=== PATIENT | male | born 1955 | race Caucasian/White ===

== ENCOUNTER 2022-07-05 14:26 | Inpatient (IN) | payer OTHER ==
[~2022-07-05] VITALS: Ht 172.7 cm; Wt 86.2 kg
[2022-07-05 14:56] LABS: Source, Urine Clean Catch
[2022-07-05 15:00] LABS: BASOPHILS ABSOLUTE AUTO 0.01 K/mm3 (0.00-0.23); BASOPHILS PERCENT AUTO 0 % (0-2); EOSINOPHILS ABSOLUTE AUTO 0.01 K/mm3 (0.00-0.68); EOSINOPHILS PERCENT AUTO 0 % (0-6); Hematocrit 46.7 % (37.0-53.0); Hemoglobin 15.6 g/dL (13.5-17.5); IMMATURE GRAN ABSOLUTE AUTO 0.06 K/mm3 (0.00-0.10); IMMATURE GRAN PERCENT AUTO 1 % (0-1); LYMPHOCYTES ABSOLUTE AUTO 0.74 K/mm3 (0.84-5.20); LYMPHOCYTES PERCENT AUTO 8 % (21-46); MONOCYTES ABSOLUTE AUTO 0.62 K/mm3 (0.16-1.47); MONOCYTES PERCENT AUTO 6 % (4-13); Mean Corpuscular HGB 29.3 pg (26.0-34.0); Mean Corpuscular HGB Conc 33.4 g/dL (31.5-36.5); Mean Corpuscular Volume 88 fL (80-100); Mean Platelet Volume 11.9 fL (9.1-12.4); NEUTROPHILS ABSOLUTE AUTO 8.23 K/mm3 (1.96-9.15); NEUTROPHILS PERCENT AUTO 85 % (41-73); Platelet Count 137 K/mm3 (150-400); RDW Coefficient Variation 14.1 % (11.7-14.2); RDW Standard Deviation 45.5 fL (35.1-46.3); Red Blood Cell Count 5.32 M/mm3 (4.30-5.90); White Blood Cell Count 9.67 K/mm3 (4.00-11.30)
[2022-07-05 15:07] LABS: Blood, Urine 5+ (Neg); Color, Urine Amber (P-Yellow); Glucose Qualitative, Urine Neg (Neg); Ketones, Urine 1+ (Neg); Leukocyte Esterase, Urine 1+ (Neg); Nitrite, Urine Neg (Neg); Protein, Urine 3+ (Neg); Urobilinogen, Urine 1+ (Normal)
[2022-07-05 15:29] LABS: Appearance, Urine Hazy (Clear); Bilirubin, Urine 1+ (Neg)
[2022-07-05 15:39] LABS: U Amphetamine Screen Not Detected; U Barbituate Screen Not Detected; U Benzodiazapine Screen Not Detected; U Buprenorphine Screen Not Detected; U Cannabinoids Screen Not Detected; U Cocaine Screen Not Detected; U Methadone Screen Not Detected; U Methamphetamine Screen Not Detected; U Opiates Screen Not Detected; U Oxycodone Screen Not Detected; U Phencyclidine Screen Not Detected; U Propoxyphene Screen Not Detected
[2022-07-05 15:42] LABS: Calcium Oxalate Crystals Few /hpf
[2022-07-05 15:45] LABS: Amorphous Light (0-Heavy); Bacteria Mod /hpf; Squamous Epithelial Cells Rare /hpf (Few)
[2022-07-05 16:33] LABS: Alanine Aminotransfer (ALT/SGP 170 U/L (12-78); Albumin, Blood 3.1 g/dL (3.4-5.0); Albumin/Globulin Ratio 0.9 (0.8-1.8); Alk Phos 58 U/L (50-136); Anion Gap 16 mmol/L (6-16); Aspartate Aminotrans (AST/SGOT 557 U/L (12-37); Bilirubin, Total 0.6 mg/dL (0.1-1.0); Blood Urea Nitrogen 85 mg/dL (8-24); CO2, Blood 19 mmol/L (21-32); Calcium, Blood 7.8 mg/dL (8.5-10.1); Chloride, Blood 111 mmol/L (98-108); Creatinine, Blood 4.25 mg/dL (0.60-1.20); Globulin, Blood 3.4 g/dL (2.2-4.0); Glomerular Filtration Rate 14 (60-); Glucose, Blood 136 mg/dL (70-99); Sodium, Blood 146 mmol/L (136-145); Total Protein, Blood 6.5 g/dL (6.4-8.2)
[2022-07-05 17:51] LABS: CPK Creatine Kinase >20000 U/L (39-308)
[2022-07-05 18:06] LABS: Creatine Kinase MB 80.7 ng/mL (0.0-3.6); Creatine Kinase MB Index Unable to Calculate (0.0-4.0)
--- NOTE | 2022-07-06 04:34 | NUR ---
AIRCRAFT ENGINE SPECIALIST SUMMARY/NEW ADMIT PT ALERT AND ABLE TO ANSWER BASIC ORIENTATION QUESTIONS BUT PRESENTS FORGETFUL/MILDLY CONFUSED. FULL CODE. ON TELE--NORMAL SINUS 78 BPM. PT FELL AT HOME; FOUND DOWN AFTER THREE DAYS. PT HAS LARGE BRUISE TO LEFT HIP, ABRASION TO LEFT KNEE AND RIGHT TOE. DENIES PAIN. PT WEAK; XFERED TO BED W/SLIDER. UNABLE TO ASSESS GAIT. PT RCV FLUIDS; NS 100 MLS HR. PT INCONT OF URINE; ATTENDS IN PLACE. PT HAS A MOIS UNPRODUCTIVE COUGH; PT REPORTED COUGH WAS NEW BUT ADMIT NOTES STATE PT HAD VIRAL ILLNESS/COUGH PREVIOUSLY. ORIENTED PT TO ROOM AND CALL LIGHT. CALL LIGHT ACCESSIBLE. SET BED ALARM FOR SAFETY DUE TO PT CONFUSION. PT NOT IMPULSIVE BUT HAS NOT USED CALL LIGHT T/O THE SHIFT. PT HAS WAITED FOR STAFF T/ROUND TO MAKE REQUESTS.
[2022-07-06 06:21] LABS: Magnesium, Blood 2.7 mg/dL (1.6-2.4)
[2022-07-06 06:26] LABS: Albumin, Blood 2.7 g/dL (3.4-5.0); Blood Urea Nitrogen 89 mg/dL (8-24); CO2, Blood 20 mmol/L (21-32); Calcium, Blood 7.1 mg/dL (8.5-10.1); Chloride, Blood 105 mmol/L (98-108); Creatinine, Blood 3.71 mg/dL (0.60-1.20); Glomerular Filtration Rate 17 (60-); Glucose, Blood 101 mg/dL (70-99); Phosphorus, Blood 6.3 mg/dL (2.5-4.9); Potassium, Blood 3.6 mmol/L (3.5-5.5)
[2022-07-06 06:28] LABS: Anion Gap 10 mmol/L (6-16); Sodium, Blood 135 mmol/L (136-145)
[2022-07-06 07:07] LABS: Adenovirus Not Detected (NOT DETECT); Bordetella pertussis Not Detected (NOT DETECT); Chlamydophila pneumoniae Not Detected (NOT DETECT); Coronavirus 229E Not Detected (NOT DETECT); Coronavirus HKU1 Not Detected (NOT DETECT); Coronavirus NL63 Not Detected (NOT DETECT); Coronavirus OC43 Not Detected (NOT DETECT); Human Metapneumovirus Not Detected (NOT DETECT); Human Rhinovirus/Enterovirus Not Detected (NOT DETECT); Influenza A/2009-H1 Not Detected (NOT DETECT); Influenza A/H1 Detected (NOT DETECT); Influenza A/H3 Not Detected (NOT DETECT); Influenza B Not Detected (NOT DETECT); Mycoplasma pneumoniae Not Detected (NOT DETECT); Parainfluenza Virus 1 Not Detected (NOT DETECT); Parainfluenza Virus 2 Not Detected (NOT DETECT); Parainfluenza Virus 3 Not Detected (NOT DETECT); Parainfluenza Virus 4 Not Detected (NOT DETECT); Respiratory Syncytial Virus Not Detected (NOT DETECT); SARS-Cov-2 (COVID-19), BioFire Not Detected (NOT DETECT)
--- NOTE | 2022-07-06 17:19 | NUR ---
SHIFT SUMMARY PATIENT DENIES PAIN, NAUSEA, AND SHORTNESS OF BREATH. PATIENT IS A 1P WITH FWW FOR TRANSFERS. PATIENT IS INFLUENZA A POSITIVE AND IN DROPLET ISOLATION. PATIENT WORKED WITH PT TODAY, SEE NOTE. PATIENT REFUSED BREAKFAST AND LUNCH. EDUCATED ON IMPORTANCE OF NUTRITION. SOLAR MANUFACTURER'S REPRESENTATIVE ALSO SPOKE WITH PATIENT. PATIENT BROTHER VISITED TODAY. PATIENT SLEPT THROUGHOUT DAY. PATIENT IS PLEASANT AND COOPERATIVE WITH CARE. PATIENT IS A&O X4. PATIENT IS SLOW TO RESPOND AND NEEDS REDIRECTION AT TIMES.
--- NOTE | 2022-07-07 04:34 | NUR ---
SHIFT SUMMARY 67 YR M ADMITTED ON 07/05/22 FOR [facility]. FULL CODE. PT HAS A WET, GURGLY COUGH DUE TO BEING POSITIVE FOR INFLUENZA A. HE IS DOING WELL WITH HIS COUGHING AND HAS NO C/O PAIN OR DISCOMFORT. HE STATES THAT HE IS STARTING TO FEEL BETTER. HE USES THE BEDSIDE URINAL INDEPENDANTLY BUT WILL ASK THE NURSE TO DO IT FOR HIM IF SHE IS IN THE ROOM WHEN HE NEEDS TO URINATE. HE HAS SLEPT FOR MOST OF THIS SHIFT AND USES THE CALL LIGHT APPROPRIATELY WHEN HE NEEDS ASSISTANCE. HE IS SLOW TO RESPOND VERBALLY BUT IS A&O X 4.
[2022-07-07 06:13] LABS: Hematocrit 36.2 % (37.0-53.0); Hemoglobin 12.6 g/dL (13.5-17.5); Mean Corpuscular HGB 30.1 pg (26.0-34.0); Mean Corpuscular HGB Conc 34.8 g/dL (31.5-36.5); Mean Corpuscular Volume 86 fL (80-100); Mean Platelet Volume 12.5 fL (9.1-12.4); Platelet Count 108 K/mm3 (150-400); RDW Coefficient Variation 14.1 % (11.7-14.2); RDW Standard Deviation 44.3 fL (35.1-46.3); Red Blood Cell Count 4.19 M/mm3 (4.30-5.90); White Blood Cell Count 5.58 K/mm3 (4.00-11.30)
[2022-07-07 06:46] LABS: Albumin, Blood 2.4 g/dL (3.4-5.0); Albumin/Globulin Ratio 0.8 (0.8-1.8); Bilirubin, Total 0.6 mg/dL (0.1-1.0); Bun/Creatinine Ratio 24.4 (12.0-20.0); Calcium, Blood 7.8 mg/dL (8.5-10.1); Creatinine, Blood 3.44 mg/dL (0.60-1.20); Phosphorus, Blood 4.1 mg/dL (2.5-4.9); Potassium, Blood 3.2 mmol/L (3.5-5.5); Total Protein, Blood 5.4 g/dL (6.4-8.2)
[2022-07-07 06:47] LABS: BAND PERCENT MAN 3 % (0-8); BASOPHILS PERCENT MAN 0 % (0-2); EOSINOPHILS PERCENT MAN 0 % (0-6); LYMPHOCYTES ABSOLUTE MAN 0.44 K/mm3 (0.84-5.20); LYMPHOCYTES PERCENT MAN 8 % (21-46); MONOCYTES ABSOLUTE MAN 0.22 K/mm3 (0.16-1.47); MONOCYTES PERCENT MAN 4 % (4-13); NEUTROPHILS ABSOLUTE MAN 4.91 K/mm3 (1.96-9.15); SEG NEUTROPHILS PERCENT MAN 85 % (41-73); TOTAL CELLS COUNTED 100
--- NOTE | 2022-07-07 19:50 | NUR ---
SUMMARY- PT A/O X3-4, FORGETFUL. USES CALL LIGHT. USED URINAL ALL DAY, ONE INCONTINANCE CHANGED FROM NIGHT TO AM, OTHERWISE USED URINAL ALL DAY. HAD BED BATH. UP TO CHAIR WITH PHYSICAL THERAPY. HAS BEEN REFUSING MEALS, NO APPETITE, ENCOURAGING FLUIDS AND SUPP NEPRO DRINKS HE IS TOLERATING. BROTHER IN ROOM VISITING MOST OF THE DAY. PT HAS NS CONT IVF 100ML HR. LUNGS COARSE, FREQ MOIST NONPROD COUGH. STARTED ON FLUTTER AND ROBITUSSIN. NOTED ONE LG SPUTUM COUGHED UP RUST COLORED. REPORTED TO NOC RN.
--- NOTE | 2022-07-08 04:29 | NUR ---
SHIFT SUMMARY PATIENT HAD NO ACUTE CHANGES. AXOX 3-4, FORGETFUL AT TIMES. USES URINAL AT BEDSIDE. ONE ASSIST W/FWW GB TO BSC. PIV REMAINS INTACT. NS INFUSING AT 100 mL/HR. TELE MONITOR NSR @ 76. VSS/AFEBRILE. DENIES PAIN, SOB, AND N/V. CALL LIGHT IN REACH. BED IN LOWEST POSITION. WILL CONTINUE TO MONITOR UNTIL DAY SHIFT NURSE ASSUMES CARE.
[2022-07-08 06:22] LABS: Albumin, Blood 2.2 g/dL (3.4-5.0); Albumin/Globulin Ratio 0.6 (0.8-1.8); Bilirubin, Total 0.6 mg/dL (0.1-1.0); Bun/Creatinine Ratio 28.9 (12.0-20.0); Calcium, Blood 7.8 mg/dL (8.5-10.1); Creatinine, Blood 2.39 mg/dL (0.60-1.20); Globulin, Blood 3.5 g/dL (2.2-4.0); Potassium, Blood 3.4 mmol/L (3.5-5.5); Total Protein, Blood 5.7 g/dL (6.4-8.2)
--- NOTE | 2022-07-08 11:21 | NUR ---
LAMONT SIMS IS AT THE [facility]- PT BROTHER IS ASKING QUESTIONS ABOUT ASSISTED LIVING FACILITIES IN THE AREA AND TRYING TO FIND RESOURCES FOOR THE PT TO HAVE A SAFER LIVING SITUATION. THE PT CURRENTLY LIVES ALONE. THE DC PLAN IS HOME WITH HOME HEALTH. THE P.T. RECOMENDATION IS HOME WITH SUPERVISION AND HOME HEALTH. THE PT WOULD BENIFIT FROM A PLACE WHERE SOMEONE WOULD REMIND HIM WHEN IT IS MEAL TIME AND WHEN TO GO TO THE BATHROOM AND ASSIST HIM WITH SOME PERSONAL CARE NEEDS. CONTACTED CARE MANAGEMENT MICH SHE PROVIDED A BOOK OF RESOURCES TO THE PT BROTHER, SHE WILL MEET WITH THEM [place] TODAY. WILL SPEEK TO DR CLEVELAND ABOUT THE DC PLAN.
--- NOTE | 2022-07-08 16:34 | NUR ---
SHIFT SUMMARY- PT ALERT AND ORIENTED, 1PA TO THE BATHROOM AND INTO THE SHOWER. PT HAD A SSHOWER THIS MORNING. PER REPORT THE PT IS INDEPENDENT WITH THE URINAL HOWEVER THIS IS NOT THE CASE. THE PT WILL USE THE URINAL WHEN PROMPTED. THE PT IS WILLING TO WORK WITH THERAPY, MINI COG WAS COMPLETED TODAY. PT FAMILY IS ATTEMPTING TO ARRANGE FOR ASSISTANCE FOR THE PT AT HOME. PLAN IS TO DC THE PT HOME WITH HOME HEALTH ONCE MEDICALLY STABLE. WILL CTM AND PASS ON TO NIGHT RN IN BEDSIDE REPORT. PT IN BED, CALL LIGHT IN REACH NO S&S OF DISTRESS AT THIS TIME WILL CTM.
--- NOTE | 2022-07-09 04:26 | NUR ---
SHIFT SUMMARY PATIENT HAD NO ACUTE CHANGE. AXOX 4 AND ONE ASSIST FWW TO BSC. USES URINAL AT BEDSIDE. PIV REMAINS INTACT. NS INFUSING AT 100 mL/HR. TELE MONITOR NSR @77. VSS/AFEBRILE. DENIES PAIN, SOB, AND N/V. CALL LIGHT IN REACH. BED IN LOWEST POSITION. WILL CONTINUE TO MONITOR UNTIL DAY SHIFT NURSE ASSUMES CARE.
[2022-07-09 06:28] LABS: Bun/Creatinine Ratio 32.9 (12.0-20.0); Calcium, Blood 8.1 mg/dL (8.5-10.1); Creatinine, Blood 1.58 mg/dL (0.60-1.20); Potassium, Blood 3.3 mmol/L (3.5-5.5)
--- NOTE | 2022-07-09 16:17 | NUR ---
PT PLEASANT TODAY WITH NO C/O PAIN. DID WORK WITH P/T TODAY. IV FLUIDS RUNNING. PT NAPPED THIS AFT. LUNGS CONTINUE TO BE COARSE. NO NEW CONCERNS NOTED TODAY. BED IN LOW POSITION, CALL LITE IN REACH, CALLS APPROP
--- NOTE | 2022-07-10 05:20 | NUR ---
PER DIEM INTERPRETER SUMMARY PT A/OX3; WITH SLOW RESPONSE AND SOME FORGETFULLNESS. PT PULLED LEFT AC IV OUT WITH FLUIDS INFUSING; FOUND BEDDING TO BE SOAKED WITH NS FLUIDS AND SOME BLOOD. PT WAS UNAWARE IV HAD BEEN PULLED AND HAD NOT NOTICED THE DAMP GOWN AND BEDDING. PLACED NEW RT FOREARM IV. PT HAD SMALL SOFT BM. NOTED STAGE ONE PRESSURE SORE ON COCCYX DURING BRIEF CHANGE. EXCORIATED NON BLANCHING SKIN W/SOME OPEN BLEEDING AREAS. APPLIED CREAM AND MEPILEX. PT EDUCATION ON IMPORTANCE OF MOVING/CHANGING POSITIONS. WORKED WITH AID TO START Q2 TURNS T/O THE NIGHT. PT NEEDS PROMPTING TO CHANGE POSITIONS. PT HAS DIFFICULTY SWALLOWING TABLET MUCINEX WITH 2100 MEDS; PT SHOULD BE GIVEN ORAL SUSPENSION. WILL ADVISE ONCOMING STAFF. PT HAS HARSH PERSISTANT COUGH T/O THE NIGHT; NON PRODUCTIVE. LUNG SOUNDS COARSE W/EXPIRATION. ENCOURAGE MOVEMENT AND DEEP BREATHING. PT HAS NOT DEMONSTRATED HE CAN MAKE HIS NEEDS KNOWN. HE DID NOT ALERT STAFF WHEN HE HAD A BOWEL MOVEMENT AND HAS NOT USED LIGHT TO REACH STAFF. CALL LIGHT IS ACCESSIBLE. WILL CONT TO MONITOR.
--- NOTE | 2022-07-10 12:06 | NUR ---
PT BROUGHT DOWN IN FOR DC WITH HIS BROTHER. PT LEFT WITH ALL BELONGINGS AND HAD WALKER FROM HOME FOR TRANSFER INTO CAR. PT SIGNED ALL REQUIRED DC PAPERWORK.
== END 2022-07-10 10:57 | disposition home or self-care (01) | DRG 683 ==
LOC: ER 14:26 → MEDS 17:57
PROVIDERS: Emergency Medicine; Student in an Organized Health Care Education/Training Program; ADMIT Internal Medicine
DX: N17.9 Acute kidney failure, unspecified (principal); E87.1 Hypo-osmolality and hyponatremia; I24.8 Other forms of acute ischemic heart disease; M62.82 Rhabdomyolysis; J10.1 Influenza due to other identified influenza virus with other respiratory manifestations; Z28.21 Immunization not carried out because of patient refusal; Z20.822 Contact with and (suspected) exposure to COVID-19; E87.6 Hypokalemia; F17.210 Nicotine dependence, cigarettes, uncomplicated; D69.6 Thrombocytopenia, unspecified; R74.01 Elevation of levels of liver transaminase levels; M17.0 Bilateral primary osteoarthritis of knee; E83.39 Other disorders of phosphorus metabolism; E86.0 Dehydration; Z98.890 Other specified postprocedural states; Z88.0 Allergy status to penicillin; W18.39XA Other fall on same level, initial encounter; Y92.009 Unspecified place in unspecified non-institutional (private) residence as the place of occurrence of the external cause
CPT/HCPCS: 0202U; 36415; 73560-LT; 73560-RT; 76770; 80048; 80053; 80069; 81001; 82550; 82553; 83735; 84100; 84484; 85007; 85025; 85027; 87086; 93005; 93010; 96360; 97110; 97116; 97130; 97162; 97165; 97530; 97535; 99285-25; A9270; G0480; J1644; J7030

== ENCOUNTER 2024-09-05 16:13 | Emergency (ER) | payer OTHER ==
[~2024-09-05] VITALS: Ht 172.7 cm; Wt 81.7 kg
[2024-09-05] MEDS ORDERED: Midazolam HCl 1MG / ML 2ML Vial IV ONE (16:40)
[2024-09-05 16:41] LABS: BASOPHILS ABSOLUTE AUTO 0.09 K/mm3 (0.00-0.23); BASOPHILS PERCENT AUTO 1 % (0-2); EOSINOPHILS ABSOLUTE AUTO 0.07 K/mm3 (0.00-0.68); EOSINOPHILS PERCENT AUTO 1 % (0-6); Hematocrit 52.6 % (37.0-53.0); Hemoglobin 17.5 g/dL (13.5-17.5); IMMATURE GRAN ABSOLUTE AUTO 0.01 K/mm3 (0.00-0.10); IMMATURE GRAN PERCENT AUTO 0 % (0-1); LYMPHOCYTES ABSOLUTE AUTO 2.44 K/mm3 (0.84-5.20); LYMPHOCYTES PERCENT AUTO 29 % (21-46); MONOCYTES PERCENT AUTO 5 % (4-13); Mean Corpuscular HGB Conc 33.3 g/dL (31.5-36.5); Mean Corpuscular Volume 90 fL (80-100); Mean Platelet Volume 10.2 fL (9.1-12.4); NEUTROPHILS ABSOLUTE AUTO 5.35 K/mm3 (1.96-9.15); NEUTROPHILS PERCENT AUTO 64 % (41-73); Platelet Count 221 K/mm3 (150-400); RDW Coefficient Variation 13.5 % (11.7-14.2); RDW Standard Deviation 44.9 fL (35.1-46.3); Red Blood Cell Count 5.84 M/mm3 (4.30-5.90); White Blood Cell Count 8.36 K/mm3 (4.00-11.30)
[2024-09-05 17:06] LABS: Albumin, Blood 3.8 g/dL (3.4-5.0); Albumin/Globulin Ratio 1.1 (0.8-1.8); Bilirubin, Total 0.7 mg/dL (0.1-1.0); Bun/Creatinine Ratio 21.7 (12.0-20.0); Calcium, Blood 9.1 mg/dL (8.5-10.1); Creatinine, Blood 0.78 mg/dL (0.60-1.20); Globulin, Blood 3.6 g/dL (2.2-4.0); Potassium, Blood 3.6 mmol/L (3.5-5.5); Total Protein, Blood 7.4 g/dL (6.4-8.2)
[2024-09-06 08:05] VITALS: BP 119/73
== END 2024-09-06 10:36 | disposition home or self-care (01) ==
LOC: ER 16:13
PROVIDERS: Emergency Medicine
DX: F03.918 Unspecified dementia, unspecified severity, with other behavioral disturbance (principal); Z88.0 Allergy status to penicillin
CPT/HCPCS: 70450; 80053; 82550; 84484; 85025; 93005; 93010; 96374; 99285-25; J2250

== ENCOUNTER 2024-11-17 15:32 | Emergency (ER) | payer MEDICARE, OTHER ==
[~2024-11-17] VITALS: Ht 154.9 cm; Wt 80.3 kg
[2024-11-17] MEDS ORDERED: CLIN150 PO (18:53)
[2024-11-17] MEDS ORDERED: Cleocin HCl150 MG PO (18:53)
[2024-11-17 19:41] VITALS: BP 127/89
== END 2024-11-17 19:41 | disposition home or self-care (01) ==
LOC: ER 15:32
DX: L03.114 Cellulitis of left upper limb (principal); F17.200 Nicotine dependence, unspecified, uncomplicated; Z88.0 Allergy status to penicillin
CPT/HCPCS: 73120; 99283-25; A9270